=== PATIENT | male | born 1990 | race Two or more races ===

== ENCOUNTER → 2023-07-12 | Day surgery (SDC) | payer OTHER ==
[~2023-07-12] VITALS: Ht 175.3 cm; Wt 72.6 kg
[~2023-07-12] MED LIST: CIPROFLOXACIN 400MG/200ML 200 ML IV ONE; DexAMETHasone SOD PHOS 10MG/1ML VIAL INJ ONE; HYDROmorphone HCL 2 MG/ML VL/or syr IV PRN; MEPERIDINE HCL (25 MG/ML) 1ML VIAL IV PRN; MEPERIDINE HCL (25 MG/ML) 1ML VIAL ONE; METOCLOPRAMIDE HCL 5MG/ml INJ 2ml VIAL IV PRN; ONDANSETRON HCL 4 MG/2 ML VIAL IV PRN; ONDANSETRON HCL 4 MG/2 ML VIAL ONE; PROPOFOL 10 MG/ML 20 ML IV ONE; ePHEDrine SULFATE 50 MG/ML AMP ONE; fentaNYL CITRATE 100 MCG/2 ML VL ONE
[2023-07-12 09:59] VITALS: PULSE 68; RESP 12; TEMP 97.6; O2SAT 100
[2023-07-12 10:44] VITALS: BP 115/70; PULSE 69; RESP 16; O2SAT 100
== END | disposition home or self-care (01) ==
LOC: SUR 06:42 → EEVIPCON 09:15
PROVIDERS: ATTEND Urology
DX: N35.819 Other urethral stricture, male, unspecified site (principal); K21.9 Gastro-esophageal reflux disease without esophagitis
CPT/HCPCS: 52276; J0744; J1100; J2175; J2405; J2704; J3010